=== PATIENT | male | born 1975 | race Caucasian/White ===

== ENCOUNTER 2018-12-16 01:55 | Inpatient (IN) | payer OTHER ==
[~2018-12-16] VITALS: Ht 167.6 cm; Wt 71.5 kg
[2018-12-16 02:37] VITALS: BP 107/68; PULSE 67; RESP 18
[2018-12-16] MEDS ORDERED: SERT50TA PO (02:38)
[2018-12-16 03:20] VITALS: Ht 167.6 cm; Wt 71.5 kg
[2018-12-16] MEDS ORDERED: HYDROmorphONE 0.5 MG/0.5 ML SYG IV PRN (03:30)
[2018-12-16] MEDS ORDERED: NACL 0.9% 3 ML SYG IV SCH (03:30)
[2018-12-16] MEDS ORDERED: ACETAMINOPHEN 325 MG TAB PO PRN (03:30)
[2018-12-16] MEDS ORDERED: ONDANSETRON 4 MG INJ IV PRN (03:30)
[2018-12-16] MEDS ORDERED: BISACODYL (EC) 5 MG TAB PO PRN (03:30)
[2018-12-16] MEDS ORDERED: DOCUSATE SODIUM 100 MG CAP PO PRN (03:30)
[2018-12-16] MEDS ORDERED: TAMSULOSIN (SR) 0.4 MG CAP PO ONE (03:30)
[2018-12-16] MEDS: SOD CHLORIDE 0.9% 1,000 ML IV SCH ×2 (04:04→11:24)
--- NOTE | 2018-12-16 04:42 | HP ---
Date/Time of Note Date/Time of Note DATE: 12/16/18 TIME: 04:34 Assessment/Plan VTE Prophylaxis SCD applied (from Nsg): Yes Pharmacological prophylaxis: NA/contraindicated Pharm contraindication: low risk/ambulating Lines/Catheters IV Catheter Type (from Nrsg): Peripheral IV Assessment/Plan Hospital Course This is a 43-year-old male being admitted to the [facility] floor for: #1 right sided obstructive nephrolithiasis with hydronephrosis: 4 mm obstructing calculus. Patient is currently afebrile with a normal white blood cell count. Patient did have an elevated creatinine of 1.3 which was 0.7 prior according to the emergency department Dr. Jordin Lawrence. Will provide IV fluid hydration at the current time with normal saline. Flomax. Will obtain a preop chest x-ray, EKG, KUB and CBC and BMP and PT and PTT at the request of the urologist . #2 acute kidney injury: Creatinine 1.3 with the previous creatinine of 0.7 according to the ED physician at [facility]. Secondary to #1. Will provide IV fluid hydration with normal saline, Flomax, further management as per urology. #3 DVT GI prophylaxis: SCDs, no GI prophylaxis indicated Further treatment strategy will be implemented as per the clinical course. Result Diagram: 12/16/18 0340 12/16/18 0340 Results 24hrs Laboratory Tests Test 12/16/18 03:40 White Blood Count 5.7 Red Blood Count 4.20 L Hemoglobin 13.0 L Hematocrit 38.8 L Mean Corpuscular Volume 92.4 Mean Corpuscular Hemoglobin 31.0 Mean Corpuscular Hemoglobin Concent 33.5 Red Cell Distribution Width 12.7 Platelet Count 173 Mean Platelet Volume 10.7 H Immature Granulocytes % 0.700 H Neutrophils % 62.3 Lymphocytes % 22.1 Monocytes % 12.3 H Eosinophils % 1.9 Basophils % 0.7 Nucleated Red Blood Cells % 0.0 Immature Granulocytes # 0.040 H Neutrophils # 3.5 Lymphocytes # 1.3 Monocytes # 0.7 Eosinophils # 0.1 Basophils # 0.0 Nucleated Red Blood Cells # 0.0 Prothrombin Time 12.6 Prothrombin Time Ratio 1.0 INR International Normalized Ratio 0.93 Activated Partial Thromboplast Time 28.8 Sodium Level 140 Potassium Level 4.9 Chloride Level 106 Carbon Dioxide Level 29 Anion Gap 5 Blood Urea Nitrogen 25 H Creatinine 1.06 Est Glomerular Filtrat Rate mL/min > 60 Glucose Level 94 Calcium Level 9.1 Magnesium Level 1.8 Total Bilirubin 0.6 Direct Bilirubin 0.00 Indirect Bilirubin 0.6 Aspartate Amino Transf (AST/SGOT) 95 H Alanine Aminotransferase (ALT/SGPT) 102 H Alkaline Phosphatase 52 Total Protein 6.5 Albumin 3.8 Globulin 2.70 Albumin/Globulin Ratio 1.40 HPI/ROS Admit Date/Time Admit Date/Time December 16, 2018 at 01:55 Hx of Present Illness Chief complaint: Right flank pain This is a 43-year-old male with a past medical history of kidney stones who originally presented to [facility] with complaints of right lower q uadran approximately 3 weeks ago patient was diagnosed with a right kidney stone and was discharged with Flomax Zofran and Percocet. He has been reportedly pain-free over the last week or so and then all of a sudden he started experiencing recurrent sharp and stabbing pain in the right groin area towards the flank. Was severe in nature. He did have nausea and vomiting as well. He was on Flomax Zofran and Percocet which I did gotten prescribed prior but it did not give him any relief. He denies any fevers or chills. Vitals on presentation temperature 97.8/pulse 81/respirations 18/BP 132/75/pulse ox 91% on room air CT of the abdomen pelvis: Grade 2 hydronephrosis of the right kidney. 4 mm obstructing calculus at the right trigone. Patient was subsequently transferred to [facility] secondary to insurance purposes Pertinent laboratory findings from transfer facility: BUN 27 creatinine 1.3 (previous creatinine approximately 0.7 according to the [facility], ED phys ician.) White blood cell 7.6/hemoglobin 12.9/hematocrit 37.9 Platelets 179 Allergies: NKDA Medications: See SEP ROS Const: As per HPI Eyes : No pain discharge or redness or change in visual acuity ENT: No pain, sore throat, congestion, congestion, dysphagia or discharge Respiratory: No shortness of breath, cough, sputum, wheezing, or pleuritic pain Cardiovascular: No chest pain, palpitation, PND, or edema GI : no change in appetite, abdominal pain, nausea, vomiting, diarrhea, constipation, or change in the color his stool Genitourinary: As per HPI Musculoskeletal: No joint pain, back pain, neck pain, restricted range of motion in neck or joints Skin: No rash, bruising or hives Neuro: No headache, dizziness, syncope, seizure, focal weakness Endocrine: No polyuria, polydipsia, temperature intolerance Psych: No hallucination, depression, anxiety or suicidal ideation PMH/Family/Social Past Medical History Kidney stones Medications Current Medications Sodium Chloride 1,000 ml @ 125 mls/hr Q8H IV Last administered on 12/16/18at 04:04; Admin Dose 125 MLS/HR; Start 12/16/18 at 03:24 IV Flush (NS 3 ml) 3 ml PER PROTOCOL IV ; Start 12/16/18 at 03:30 Ondansetron HCl (Zofran Inj) 4 mg Q6H PRN IV NAUSEA/VOMITING; Start 12/16/18 at 03:30 Acetaminophen (Tylenol Tab) 650 mg Q6H PRN PO .PAIN 1-3 OR TEMP; Start 12/16/18 at 03:30 Hydromorphone HCl (Dilaudid) 0.5 mg Q4H PRN IV .SEVERE PAIN 7-10; Start 12/16/18 at 03:30 Docusate Sodium (Colace) 100 mg Q12H PRN PO .CONSTIPATION; Start 12/16/18 at 03:30 Bisacodyl (Dulcolax) 5 mg DAILY PRN PO .CONSTIPATION; Start 12/16/18 at 03:30 Coded Allergies: No Known Allergy (Unverified , 12/16/18) Past Surgical History Right knee arthroscopic surgery Family History Significant Family History: no pertinent family hx Social History Alcohol Use: none Smoking Status: Never smoker Drug Use: none Exam/Review of Systems Vital Signs Vitals Vital Signs Date Temp Pulse Resp B/P (MAP) Pulse Ox O2 O2 Flow FiO2 Time Delivery Rate 12/16/18 97.7 67 18 107/68 94 02:37 (81) Exam Exam General: Patient is a pleasant male currently lying in bed in no acute distress HEENT: Atraumatic, normocephalic. The pupils are equal, round and reactive. Extraocular motor are intact Neck: Supple with full range of motion. No rigidity or meningismus Chest: Nontender Lungs: Clear to auscultation bilaterally no crackles rales or wheezing Heart: Normal S1-S2, Regular rhythm and rate. No murmur, S3, or S4 Abdomen: Soft, tenderness palpation of the right groin, right costovertebral angle tenderness, normal bowel sounds Extremities: Normal to inspection, no edema no cyanosis Neurologic: Normal mental status, speech normal, cranial nerves II through XII are intact, motor and sensory are intact, no focal weakness DEJA JOAQUIN December 16, 2018 04:42
[2018-12-16 07:21] VITALS: BP 93/52; PULSE 68; RESP 18
--- NOTE | 2018-12-16 08:11 | CONS ---
Assessment/Plan Assessment/Plan Hospital Course (Demo Recall) 43-year-old male has been having right flank pain on and off for the past 3 weeks. He was seen at [facility] and was given pain medications and sent home with the hope that he will pass the stone. He returned to the emergency room at [facility] last night with severe pain again and his creatinine has gone up and the stone was obstructing. He was transferred to [facility] because of his insurance. He does have a history of kidney stone in the past which he passed but he does not remember what side and when On the exam he still have pain in the right flank area. The impression: Distal right ureteral stone with obstruction Plan: I discussed with the patient the options which include observation and wait for him to pass a stone. As to when he will pass the stone is unknown he could pass it today or tomorrow or a week from tomorrow. But that is an option and the stone is of a size that he may be able to pass it. The second option would be to do cystoscopy and ureteroscopy and laser lithotripsy and insertion of a JJ stent. I explained to him the benefit the risks and the possible complications of the procedure. I told him that we could do the procedure later on this evening if he is agreeable. I told him to urinate in the urinal to make sure that we strain the urine and see if he does pass a stone. If he want to proceed with the surgery he will sign the consent. Consultation Date/Type/Reason Admit Date/Time December 16, 2018 at 01:55 Date of Consultation: December 16, 2018 Type of Consult Urology Reason for Consultation Distal right ureteral stone Requesting Provider: DEJA JOAQUIN Date/Time of Note DATE: 12/16/18 TIME: 08:05 Hx of Present Illness 43-year-old male has been having right flank pain on and off for the past 3 weeks. He was seen at [facility] and was given pain medications and sent home with the hope that he will pass the stone. He returned to the emergency room at [facility] last night with severe pain again and his creatinine has gone up and the stone was obstructing. He was transferred to [facility] because of his insurance. He does have a history of kidney stone in the past which he passed but he does not remember what side and when Constitutional: no complaints Eyes: no complaints ENT: no complaints Respiratory: no complaints Cardiovascular: no complaints Gastrointestinal: no complaints Genitourinary: flank pain (Right side) Musculoskeletal: no complaints Skin: no complaints Neurologic: no complaints Endocrine: no complaints Lymphatic: no complaints Psychological: no complaints Immunologic: no complaints Past Medical History Medical History: no pertinent history Home Meds Reported Medications Sertraline Hcl* (Zoloft*) 50 Mg Tablet, 50 MG PO BID, #30 TAB 12/16/18 Medications Current Medications Sodium Chloride 1,000 ml @ 125 mls/hr Q8H IV Last administered on 12/16/18at 04:04; Admin Dose 125 MLS/HR; Start 12/16/18 at 03:24 IV Flush (NS 3 ml) 3 ml PER PROTOCOL IV ; Start 12/16/18 at 03:30 Ondansetron HCl (Zofran Inj) 4 mg Q6H PRN IV NAUSEA/VOMITING; Start 12/16/18 at 03:30 Acetaminophen (Tylenol Tab) 650 mg Q6H PRN PO .PAIN 1-3 OR TEMP Last administered on 12/16/18at 05:07; Admin Dose 650 MG; Start 12/16/18 at 03:30 Hydromorphone HCl (Dilaudid) 0.5 mg Q4H PRN IV .SEVERE PAIN 7-10; Start 12/16/18 at 03:30 Docusate Sodium (Colace) 100 mg Q12H PRN PO .CONSTIPATION; Start 12/16/18 at 03:30 Bisacodyl (Dulcolax) 5 mg DAILY PRN PO .CONSTIPATION; Start 12/16/18 at 03:30 Allergies: Coded Allergies: No Known Allergy (Unverified , 12/16/18) Past Surgical History Past Surgical Hx: other (Right knee arthroscopy) Social History Alcohol Use: none Smoking Status: Never smoker Drug Use: none Exam/Review of Systems Exam Vitals Vital Signs Date Temp Pulse Resp B/P (MAP) Pulse Ox O2 O2 Flow FiO2 Time Delivery Rate 12/16/18 97.9 68 18 93/52 (66) 97 07:21 Constitutional: alert Psych: no complaints Head: normocephalic Eyes: nl conjunctiva ENMT: nl external ears & nose Neck: supple Respiratory: No wheezing Cardiovascular: No jugular venous distention (JVD) Gastrointestinal: soft Genitourinary - Male: nl penis (Circumcised), CVA tenderness (Right side) Musculoskeletal: nl extremities to inspection Extremities: normal pulses; No calf tenderness Neurological: nl mental status Results Result Diagram: 12/16/18 0340 12/16/18 0340 Results 24hrs Laboratory Tests Test 12/16/18 03:40 White Blood Count 5.7 Red Blood Count 4.20 L Hemoglobin 13.0 L Hematocrit 38.8 L Mean Corpuscular Volume 92.4 Mean Corpuscular Hemoglobin 31.0 Mean Corpuscular Hemoglobin Concent 33.5 Red Cell Distribution Width 12.7 Platelet Count 173 Mean Platelet Volume 10.7 H Immature Granulocytes % 0.700 H Neutrophils % 62.3 Lymphocytes % 22.1 Monocytes % 12.3 H Eosinophils % 1.9 Basophils % 0.7 Nucleated Red Blood Cells % 0.0 Immature Granulocytes # 0.040 H Neutrophils # 3.5 Lymphocytes # 1.3 Monocytes # 0.7 Eosinophils # 0.1 Basophils # 0.0 Nucleated Red Blood Cells # 0.0 Prothrombin Time 12.6 Prothrombin Time Ratio 1.0 INR International Normalized Ratio 0.93 Activated Partial Thromboplast Time 28.8 Sodium Level 140 Potassium Level 4.9 Chloride Level 106 Carbon Dioxide Level 29 Anion Gap 5 Blood Urea Nitrogen 25 H Creatinine 1.06 Est Glomerular Filtrat Rate mL/min > 60 Glucose Level 94 Calcium Level 9.1 Magnesium Level 1.8 Total Bilirubin 0.6 Direct Bilirubin 0.00 Indirect Bilirubin 0.6 Aspartate Amino Transf (AST/SGOT) 95 H Alanine Aminotransferase (ALT/SGPT) 102 H Alkaline Phosphatase 52 Total Protein 6.5 Albumin 3.8 Globulin 2.70 Albumin/Globulin Ratio 1.40 Medications Medication Current Medications Sodium Chloride 1,000 ml @ 125 mls/hr Q8H IV Last administered on 12/16/18at 04:04; Admin Dose 125 MLS/HR; Start 12/16/18 at 03:24 IV Flush (NS 3 ml) 3 ml PER PROTOCOL IV ; Start 12/16/18 at 03:30 Ondansetron HCl (Zofran Inj) 4 mg Q6H PRN IV NAUSEA/VOMITING; Start 12/16/18 at 03:30 Acetaminophen (Tylenol Tab) 650 mg Q6H PRN PO .PAIN 1-3 OR TEMP Last administered on 12/16/18at 05:07; Admin Dose 650 MG; Start 12/16/18 at 03:30 Hydromorphone HCl (Dilaudid) 0.5 mg Q4H PRN IV .SEVERE PAIN 7-10; Start 12/16/18 at 03:30 Docusate Sodium (Colace) 100 mg Q12H PRN PO .CONSTIPATION; Start 12/16/18 at 03:30 Bisacodyl (Dulcolax) 5 mg DAILY PRN PO .CONSTIPATION; Start 12/16/18 at 03:30 CLEVE SÁNCHEZ MD December 16, 2018 08:11
[2018-12-16] MEDS ORDERED: OXYC-279 PO (12:23)
[2018-12-16] MEDS ORDERED: SULF1TAB31 PO (12:23)
[2018-12-16] MEDS ORDERED: TAMS-14 PO (12:23)
--- NOTE | 2018-12-16 12:27 | PDOCDIS ---
Discharge Instructions DIAGNOSIS Discharge Diagnosis Right nephrolithiasis with hydroureter. CONDITION [id number] Patient Condition: [id number] Good HOME CARE INSTRUCTIONS: [id number] Diet Instructions: [id number] Regular ACTIVITY: [id number] Activity Restrictions: [id number] No Restrictions FOLLOW UP/APPOINTMENTS Follow-up Plan 1. Take daily tamsulosin as prescribed. 2. For pain, take [id number] tylenol or ibuprofen as needed. Can take up to 800 mg ibuprofen at a time every 6 hours. 3. For refractory pain, take Percocet as prescribed. Do not drink alcohol, drive, or operate heavy machinery after taking Percocet. 4. If you develop burning with urination, try taking cranberry juice. If symptoms persist, or if you develop fevers or nausea, take Bactrim as prescribed. 5. Return to the emergency room if the pain becomes unbearable. GHAZAL ESPINO MD December 16, 2018 12:27
--- NOTE | 2018-12-16 12:46 | RADRPT ---
Vent Rate: 58 bpm RR Interval: 1028 msec [place] Interval: 171 msec QRS Duration: 76 msec QT Interval: 381 msec QTC Interval: 376 msec P-R-T Jackson: 78 - 82 - 64 degrees Sinus rhythm...normal P axis, V-rate 50- 99 Electronically Signed By: Jesus Calderón
--- NOTE | 2018-12-16 15:43 | DS ---
Date/Time of Note Date/Time of Note DATE: 12/16/18 TIME: 15:40 Discharge Summary Admission/Discharge Info Admit Date/Time December 16, 2018 at 01:55 Discharge Date/Time December 16, 2018 Discharge Diagnosis Right nephrolithiasis with hydroureter. Patient Condition: Fair Consults Dr. Galindo, urology Procedures None Hx of Present Illness Chief complaint: Right flank pain This is a 43-year-old male with a past medical history of kidney stones who originally presented to [facility] with complaints of right lower quadran approximately 3 weeks ago patient was diagnosed with a right kidney stone and was discharged with Flomax Zofran and Percocet. He has been reportedly pain-free over the last week or so and then all of a sudden he started experiencing recurrent sharp and stabbing pain in the right groin area towards the flank. Was severe in nature. He did have nausea and vomiting as well. He was on Flomax Zofran and Percocet which I did gotten prescribed prior but it did not give him any relief. He denies any fevers or chills. Vitals on presentation temperature 97.8/pulse 81/respirations 18/BP 132/75/pulse ox 91% on room air CT of the abdomen pelvis: Grade 2 hydronephrosis of the right kidney. 4 mm obstructing calculus at the right trigone. Patient was subsequently transferred to [facility] secondary to insurance purposes Pertinent laboratory findings from transfer facility: BUN 27 creatinine 1.3 ( previous creatinine approximately 0.7 according to the [facility], ED physician.) White blood cell 7.6/hemoglobin 12.9/hematocrit 37.9 Platelets 179 Allergies: NKDA Medications: See [facility] Hospital Course The patient was seen by Dr. Galindo and offered uroscopy with lithotripsy and stent placement. The patient declined, he wants to try to pass the stone on his own even though it has already been 3 weeks. His father had prostate surgery and had severe complications with incontinence and impotence. I told the patient these risks are far less with the uroscopy procedure. However he still declined. Plan to discharge with another two weeks of tamsulosin and percocet (5/325 #10) for breakthrough pain. I also prescribed Bactrim DS #10 but told him not to fill the script unless he develops dysuria with fevers. Home Meds Active Scripts Oxycodone HCl/Acetaminophen (Percocet 5-325 mg Tablet) 1 Each Tablet, 1 EACH PO Q4H WHILE AWAKE, #10 TAB Prov:GHAZAL ESPINO MD 12/16/18 Sulfamethoxazole/Trimethoprim* (Bactrim Ds* Tablet) 1 Each Tablet, 1 TAB PO BID, #10 TAB Prov:GHAZAL ESPINO MD 12/16/18 Tamsulosin Hcl* (Flomax*) 0.4 Mg Cap.er.24h, 0.4 MG PO DAILY, #14 CAP Prov:GHAZAL ESPINO MD 12/16/18 Reported Medications Sertraline Hcl* (Zoloft*) 50 Mg Tablet, 50 MG PO BID, #30 TAB 12/16/18 Follow-up Plan 1. Take daily tamsulosin as prescribed. 2. For pain, take [id number] tylenol or ibuprofen as needed. Can take up to 800 mg ibuprofen at a time every 6 hours. 3. For refractory pain, take Percocet as prescribed. Do not drink alcohol, drive, or operate heavy machinery after taking Percocet. 4. If you develop burning with urination, try taking cranberry juice. If symptoms persist, or if you develop fevers or nausea, take Bactrim as prescribed. 5. Return to the emergency room if the pain becomes unbearable. Primary Care Provider Not On Staff Doctor Time spent on discharge: > 30 minutes Pending Labs Laboratory Tests Test 12/16/18 03:40 White Blood Count 5.7 10^3/ul (4.8-10.8) Red Blood Count 4.20 10^6/ul (4.70-6.10) Hemoglobin 13.0 g/dl (14.0-18.0) Hematocrit 38.8 % (42.0-52.0) Mean Corpuscular Volume 92.4 fl (82.0-101.0) Mean Corpuscular Hemoglobin 31.0 pg (29.0-33.0) Mean Corpuscular Hemoglobin Concent 33.5 g/dl (32.0-37.0) Red Cell Distribution Width 12.7 % (11.5-14.5) Platelet Count 173 10^3/UL (140-415) Mean Platelet Volume 10.7 fl (7.4-10.4) Immature Granulocytes % 0.700 % (0.001-0.429) Neutrophils % 62.3 % (39.0-77.0) Lymphocytes % 22.1 % (15.0-51.0) Monocytes % 12.3 % (0.0-11.0) Eosinophils % 1.9 % (0.0-7.0) Basophils % 0.7 % (0.0-2.0) Nucleated Red Blood Cells % 0.0 /100WBC (0.0-0.0) Immature Granulocytes # 0.040 10^3/ul (0.0-0.031) Neutrophils # 3.5 10^3/ul (1.6-7.5) Lymphocytes # 1.3 10^3/ul (0.8-2.9) Monocytes # 0.7 10^3/ul (0.3-0.9) Eosinophils # 0.1 10^3/ul (0.0-0.5) Basophils # 0.0 10^3/ul (0.0-0.1) Nucleated Red Blood Cells # 0.0 10^3/ul (0.0-0.0) Prothrombin Time 12.6 Sec (11.9-14.9) Prothrombin Time Ratio 1.0 INR International Normalized Ratio 0.93 Activated Partial Thromboplast Time 28.8 Sec (23.0-35.0) Sodium Level 140 mmol/L (135-144) Potassium Level 4.9 mmol/L (3.5-5.1) Chloride Level 106 mmol/L (97-110) Carbon Dioxide Level 29 mmol/L (21-31) Anion Gap 5 (5-13) Blood Urea Nitrogen 25 mg/dl (7-20) Creatinine 1.06 mg/dl (0.61-1.24) Est Glomerular Filtrat Rate mL/min > 60 mL/min (>60) Glucose Level 94 mg/dl (70-220) Calcium Level 9.1 mg/dl (8.4-10.2) Magnesium Level 1.8 mg/dl (1.7-2.5) Total Bilirubin 0.6 mg/dl (0.2-1.3) Direct Bilirubin 0.00 mg/dl (0.00-0.20) Indirect Bilirubin 0.6 mg/dl (0-1.1) Aspartate Amino Transf (AST/SGOT) 95 IU/L (15-46) Alanine Aminotransferase (ALT/SGPT) 102 IU/L (13-69) Alkaline Phosphatase 52 IU/L (42-121) Total Protein 6.5 g/dl (6.1-8.1) Albumin 3.8 g/dl (3.3-4.9) Globulin 2.70 g/dl (1.3-3.2) Albumin/Globulin Ratio 1.40 GHAZAL ESPINO MD December 16, 2018 15:43
== END 2018-12-16 13:50 | disposition home or self-care (01) | DRG 694 ==
LOC: 2NE 01:55
PROVIDERS: ADMIT Family Medicine; ATTEND Family Medicine
DX: N13.2 Hydronephrosis with renal and ureteral calculous obstruction (principal); N17.9 Acute kidney failure, unspecified; Z87.442 Personal history of urinary calculi
CPT/HCPCS: 71045; 74018; 80053; 83735; 85025; 85610; 85730; 93005; J1170; J7030